=== PATIENT | female | born 1990 | race Hispanic/Latino ===

== ENCOUNTER → 2017-09-13 | Outpatient (REF) | payer OTHER, SELFPAY | LOC: M LAB REF 13:04 | DX: J02.9 Acute pharyngitis, unspecified (principal) | CPT/HCPCS: 87070 ==

== ENCOUNTER 2019-02-23 16:53 | Emergency (ER) | payer OTHER ==
[~2019-02-23] VITALS: Ht 165.1 cm; Wt 129.3 kg
[2019-02-23] MEDS ORDERED: PREVTAB2 (16:59)
[2019-02-23] MEDS ORDERED: ALL10TAB29 (16:59)
[2019-02-23] MEDS ORDERED: st johns wort (16:59)
[2019-02-23 17:36] LABS: BASO % 0.2 % (0.0-1.0); EOS # 0.4 10^3/uL (0.0-0.5); EOS % 2.7 % (0.0-3.0); HEMATOCRIT 39.5 % (36.0-47.0); HEMOGLOBIN 12.3 g/dl (12.0-15.5); LYMPH # 3.6 10^3/uL (1.5-5.0); LYMPH % 28.1 % (24.0-44.0); MEAN CORPUSCULAR HEMOGLOBIN 27.3 pg (27.0-33.0); MEAN CORPUSCULAR HGB CONC 31.1 g/dl (32.0-36.5); MEAN CORPUSCULAR VOLUME 87.6 fl (80.0-96.0); MONO # 0.7 10^3/uL (0.0-0.8); MONO % 5.3 % (0.0-5.0); NEUTROPHILS # 8.1 10^3/uL (1.5-8.5); NEUTROPHILS % 63.2 % (36.0-66.0); PLATELET COUNT, AUTOMATED 401 10^3/uL (150-450); RED BLOOD COUNT 4.51 10^6/uL (4.00-5.40); WHITE BLOOD COUNT 12.8 10^3/uL (4.0-10.0)
[2019-02-23 17:58] LABS: ALBUMIN 3.4 GM/DL (3.2-5.2); ALT/SGPT 26 U/L (12-78); BILIRUBIN,DIRECT < 0.1 MG/DL (0.0-0.2); BILIRUBIN,TOTAL 0.2 MG/DL (0.2-1.0); BLOOD UREA NITROGEN 8 MG/DL (7-18); CALCIUM LEVEL 8.8 MG/DL (8.5-10.1); CARBON DIOXIDE LEVEL 29 MEQ/L (21-32); CHLORIDE LEVEL 106 MEQ/L (98-107); CREATININE FOR GFR 0.64 MG/DL (0.55-1.30); GLOMERULAR FILTRATION RATE > 60.0 (>60); GLUCOSE, FASTING 117 MG/DL (70-100); LIPASE 81 U/L (73-393); POTASSIUM SERUM 4.2 MEQ/L (3.5-5.1); SODIUM LEVEL 142 MEQ/L (136-145); TOTAL PROTEIN 7.7 GM/DL (6.4-8.2)
[2019-02-23] MEDS ORDERED: KETOROLAC 30 MG/ML VIAL (J1885) IV ONE (22:00)
[2019-02-23] MEDS ORDERED: ONDANSETRON 4MG/2ML VIAL (J2405) IV ONE (22:00)
[2019-02-23] MEDS ORDERED: NS 1,000 ML IV ONE (22:00)
[2019-02-23] MEDS ORDERED: ISOVUE-370 76% 100ML VIAL (Q9967) As Ordered ONE (22:40)
--- NOTE | 2019-02-23 23:17 | REPVR ---
PROCEDURE INFORMATION: Exam: CT Abdomen and pelvis with contrast Exam date and time: 02/23/2019 10:36 PM Clinical history: 28 years old, female; Abdominal pain; Localized; Right lower quadrant (rlq); Additional info: Rlq pain TECHNIQUE: Imaging protocol: Computed tomography of the abdomen and pelvis with intravenous contrast. Radiation optimization: All CT scans at this facility use at least one of these dose optimization techniques: automated exposure control; mA and/or kV adjustment per patient size (includes targeted exams where dose is matched to clinical indication); or iterative reconstruction. Contrast material: ISO; Contrast volume: 100 ml; Contrast route: AC; COMPARISON: No relevant prior studies available. FINDINGS: Liver: There is a diffuse decrease in hepatic parenchymal density, consistent with fatty infiltration. Peripherally enhancing process in the posterior medial aspect of the right lobe of the liver measures 2.6 x 2.3 cm. Finding may represent an incompletely opacified hemangioma although not definitive on this single phase examination. Gallbladder and bile ducts: Normal. No calcified stones. No ductal dilation. Pancreas: Normal. No ductal dilation. Spleen: Normal. No splenomegaly. Adrenals: Normal. No mass. Kidneys and ureters: Normal. No hydronephrosis. Stomach and bowel: Unremarkable. No obstruction. No mucosal thickening. Appendix: No evidence of appendicitis. Intraperitoneal space: Unremarkable. No free air. No significant fluid collection. Vasculature: Unremarkable. No abdominal aortic aneurysm. Lymph nodes: Unremarkable. No enlarged lymph nodes. Bladder: Unremarkable as visualized. Reproductive: There is a large bilobed cystic process originating from the right ovary measuring 9.6 x 16.1 x 10.4 cm. No solid components or calcifications demonstrated. Finding may represent large functional cyst however cystic neoplasm not excluded. Bones/joints: Unremarkable. No acute fracture. Soft tissues: See Reproductive Finding. IMPRESSION: 1. There is a diffuse decrease in hepatic parenchymal density, consistent with fatty infiltration. 2. Peripherally enhancing process in the posterior medial aspect of the right lobe of the liver measures 2.6 x 2.3 cm. Finding may represent an incompletely opacified hemangioma although not definitive on this single phase examination. Ultrasound correlation may be of additional benefit. 3. There is a large bilobed cystic process originating from the right ovary measuring 9.6 x 16.1 x 10.4 cm. No solid components or calcifications demonstrated. Finding may represent large functional cyst however cystic neoplasm not excluded. Pelvic MRI to assess for any abnormal enhancement or occult soft tissue components may be helpful. Electronically signed by: Saman Jeff On 02/23/2019 23:17:07 PM
[2019-02-24 00:58] VITALS: BP 140/81
--- NOTE | 2019-02-24 01:35 | REPVR ---
PROCEDURE INFORMATION: Exam: US Pelvis Complete, Transabdominal and US Duplex Artery and Vein, Ovaries, Complete Exam date and time: 02/24/2019 12:32 AM Clinical history: 28 years old, female; Abnormal findings; Abnormal imaging test; Additional info: Large ovarian cyst right, RO torsion TECHNIQUE: Imaging protocol: Real-time transabdominal pelvic ultrasound with image documentation. Real-time duplex ultrasound scan of the arterial and venous flow of the ovaries with B-mode, color Doppler flow and spectral waveform analysis. Complete Pelvis, Complete Duplex. COMPARISON: No relevant prior studies available. FINDINGS: Uterus/cervix: Endometrial stripe is 5 mm. Uterus measures 9.3 x 3.3 x 6.2 cm. Right adnexa: There is a complex right adnexal septated cystic mass containing internal low level echoes. Mass measures approximately 20 x 10 x 14 cm. Normal arterial and venous waveforms. Left adnexa: Left ovary measures 3 x 2 x 4 cm. Normal arterial and venous waveforms. Free fluid: None. Bladder: Normal. IMPRESSION: Large cystic neoplasm arising from the right adnexa. No evidence of ovarian torsion bilaterally. Electronically signed by: Fantasma Nguyen On 02/24/2019 01:34:40 AM
== END 2019-02-24 00:59 | disposition home or self-care (01) ==
LOC: M ED 16:53
DX: E28.2 Polycystic ovarian syndrome (principal); K21.9 Gastro-esophageal reflux disease without esophagitis; Z79.899 Other long term (current) drug therapy; Z79.3 Long term (current) use of hormonal contraceptives
CPT/HCPCS: 74177; 76856; 80048; 80076; 81001; 83690; 84702; 85025; 93976; 96361; 96374; 96375; 99284; J1885; J2405; Q9967

== ENCOUNTER → 2019-02-25 | Outpatient (REF) | payer OTHER ==
[~2019-02-25] MED LIST: ALL10TAB29; PREVTAB2; st johns wort
[2019-02-27 11:06] LABS: CA 125 5.8 U/ML (<30.2); CA19-9 TUMOR MARKER,CARBOHYDRA 4.1 U/ML (<35.0)
== END ==
LOC: M SFHCWAGY 09:20
PROVIDERS: ATTEND Nurse Practitioner Family
DX: N83.201 Unspecified ovarian cyst, right side (principal)

== ENCOUNTER 2019-04-20 09:41 | Day surgery (SDC) | payer OTHER ==
[~2019-04-20] VITALS: Ht 165.1 cm; Wt 128.4 kg
[~2019-04-20 09:41] MED LIST changes: +CETI10CH PO; +KETOROLAC 60 MG/2 ML VIAL (J1885) As Ordered ONE; +LIDOCAINE 2% INJ 100 MG/5 ML SDV (FOR ANES.) As Ordered ONE; +METF750T36 PO; +ONDANSETRON 4MG/2ML VIAL (J2405) As Ordered ONE; -PREVTAB2; +PREVTAB2 PO; +PROPOFOL 200 MG/20 ML VIAL As Ordered ONE; +ROCURONIUM BROMIDE 50 MG/5 ML VIAL As Ordered ONE; +ST J300C2 PO; +SUGAMMADEX SODIUM 500 MG/5 ML VIAL (BRIDION) As Ordered ONE; +dexameTHASONE 4 MG/ML 1ML VIAL (J1100) As Ordered ONE
[2019-04-20] MEDS ORDERED: IBUP1TAB7 PO (10:10)
[2019-04-20] MEDS ORDERED: OXYC1TAB23 PO (10:11)
[2019-04-20] MEDS ORDERED: MIDAZOLAM INJ 2 MG/2 ML VIAL (J2250) As Ordered ONE (10:13)
[2019-04-20] MEDS ORDERED: fentaNYL 250 MCG/5 ML INJECTION (J3010) As Ordered ONE (10:13)
[2019-04-20 10:14] LABS: HEMATOCRIT 40.2 % (36.0-47.0); HEMOGLOBIN 12.4 g/dl (12.0-15.5); MEAN CORPUSCULAR HEMOGLOBIN 27.4 pg (27.0-33.0); MEAN CORPUSCULAR HGB CONC 30.8 g/dl (32.0-36.5); MEAN CORPUSCULAR VOLUME 88.9 fl (80.0-96.0); PLATELET COUNT, AUTOMATED 426 10^3/uL (150-450); RED BLOOD COUNT 4.52 10^6/uL (4.00-5.40); WHITE BLOOD COUNT 12.6 10^3/uL (4.0-10.0)
[2019-04-20] MEDS ORDERED: BUPIVACAINE HCL 0.25% 30 ML VIAL As Ordered ONE (10:16)
[2019-04-20] MEDS ORDERED: ROCURONIUM BROMIDE 50 MG/5 ML VIAL As Ordered ONE (11:21)
[2019-04-20] MEDS ORDERED: fentaNYL 100 MCG/2 ML INJECTION (J3010) IV PRN (12:30)
[2019-04-20] MEDS ORDERED: HYDROMORPHONE HCL 0.5 MG/ 0.5 ML SYRINGE (J1170 PER 1) IV PRN (12:30)
[2019-04-20] MEDS ORDERED: LR 1,000 ML IV SCH (12:30)
[2019-04-20] MEDS: ONDANSETRON 4MG/2ML VIAL (J2405) IV PRN ×2 (12:37→12:48)
[2019-04-20] MEDS: PERCOCET 5MG/325MG TAB PO PRN ×2 (12:37→13:13)
[2019-04-20] MEDS ORDERED: PERCOCET 5MG/325MG TAB PO PRN (13:31)
[2019-04-20 15:17] VITALS: BP 141/80
[2019-04-20] MEDS ORDERED: KETOROLAC 30 MG/ML VIAL (J1885) IV SCH (18:00)
--- NOTE | 2019-04-21 12:31 | RO ---
DATE OF PROCEDURE: 04/20/2019 PREOPERATIVE DIAGNOSIS: Right ovarian cyst. POSTOPERATIVE DIAGNOSIS: Left ovarian cyst. PROCEDURES PERFORMED: Laparoscopic left ovarian cystectomy with partial left salpingectomy. SURGEON: Camryn Holt MD APPRENTICE JOCKEY: Rodney Ortiz MD ANESTHESIA: General endotracheal anesthesia. ESTIMATED BLOOD LOSS: 5 mL. INTRAVENOUS FLUIDS: 1 liter of lactated Ringer solution. URINE OUTPUT: 15 mL. PREOPERATIVE ANTIBIOTICS: none OPERATIVE FINDINGS: Patient with approximately a 22 cm left ovarian cyst. There was approximately 1100 mL of clear serous fluids removed intraoperatively. DESCRIPTION OF OPERATION: After informed consent was obtained and written consent was reviewed, the patient was brought to the operating room where general endotracheal anesthesia was obtained. She was then placed in lithotomy position, was prepped and draped in normal sterile fashion. Time-out in operating room was then performed identifying the patient, procedure to be performed, as well as drug allergies. A Enrique catheter was placed and set to gravity. A speculum was then placed revealing cervix. The anterior lip of cervix was grasped with a single-tooth tenaculum. The Hulka tag was advanced through the cervical os for means to manipulate the uterus. Gloves were changed. Attention was turned to the patient's abdomen where 0.25% Marcaine was infused in umbilical region. This area was incised. An 11 mm trocar sleeve was advanced through this incision. Laparoscope was then replaced revealing intra-abdominal placement and pneumoperitoneum was then obtained with CO2 gas. Two additional port sites were placed onto each side of the umbilicus. These areas was infused with 0.25% Marcaine. Each one of these incisions was infused with 0.25% Marcaine. An incision was made in each one of these areas and a 5 mm trocar sleeve was advanced to each one of these incision. The abdomen was then surveyed showing an approximately 22 cm left ovarian cyst. Right adnexa appeared to be normal. Normal appearing uterus. Using the Harmonic Dillon scalpel device and a laparoscopic suction staff command and control officer, an incision was made in the ovarian cyst which drained approximately 110 mL of serous fluid. Cystectomy was performed using Harmonic scalpel Dillon device incorporating the fimbria and part of left fallopian tube. The specimen was then placed in Endo Catch bag and was then removed through the abdomen. Surgical sites were irrigated and suctioned. Sites were inspected and noted to be hemostatic. The pneumoperitoneum was then released. The fascia of the umbilical port site was closed with #0 Vicryl. All three skin incisions were closed with #4-0 Monocryl and was dressed with Dermabond. The patient was then taken out of the lithotomy position, was awakened from general anesthesia and taken to recovery in stable condition. Dr. Ortiz my title assistant played an essential role in the operation with port placement, tissue retraction and identification as well as incision closure. DEMETRIUS
== END 2019-04-20 14:50 | disposition home or self-care (01) ==
LOC: M SDC 09:41
PROVIDERS: ATTEND Obstetrics & Gynecology
DX: D27.1 Benign neoplasm of left ovary (principal); E28.2 Polycystic ovarian syndrome; K21.9 Gastro-esophageal reflux disease without esophagitis; L30.9 Dermatitis, unspecified; F41.9 Anxiety disorder, unspecified; J30.81 Allergic rhinitis due to animal (cat) (dog) hair and dander; J30.1 Allergic rhinitis due to pollen; Z79.899 Other long term (current) drug therapy; Z79.84 Long term (current) use of oral hypoglycemic drugs
CPT/HCPCS: 36415; 58661; 81025; 85027; 86850; 86900; 86901; 88305; J1100; J1885; J2250; J2405; J3010

== ENCOUNTER → 2020-03-01 | Outpatient (CLI) | payer OTHER ==
[~2020-03-01] MED LIST changes: -ALL10TAB29; +CETI-24; +IBUP1TAB7 PO; -KETOROLAC 60 MG/2 ML VIAL (J1885) As Ordered ONE; -LIDOCAINE 2% INJ 100 MG/5 ML SDV (FOR ANES.) As Ordered ONE; -ONDANSETRON 4MG/2ML VIAL (J2405) As Ordered ONE; +OXYC1TAB23 PO; -PROPOFOL 200 MG/20 ML VIAL As Ordered ONE; -ROCURONIUM BROMIDE 50 MG/5 ML VIAL As Ordered ONE; -SUGAMMADEX SODIUM 500 MG/5 ML VIAL (BRIDION) As Ordered ONE; -dexameTHASONE 4 MG/ML 1ML VIAL (J1100) As Ordered ONE
[2020-03-01 16:24] LABS: HEMATOCRIT 39.8 % (36.0-47.0); HEMOGLOBIN 12.5 g/dl (12.0-15.5); MEAN CORPUSCULAR HEMOGLOBIN 28.2 pg (27.0-33.0); MEAN CORPUSCULAR HGB CONC 31.4 g/dl (32.0-36.5); MEAN CORPUSCULAR VOLUME 89.6 fl (80.0-96.0); PLATELET COUNT, AUTOMATED 429 10^3/uL (150-450); RED BLOOD COUNT 4.44 10^6/uL (4.00-5.40); WHITE BLOOD COUNT 11.4 10^3/uL (4.0-10.0)
[2020-03-01 17:01] LABS: ALBUMIN 3.4 GM/DL (3.2-5.2); ALT/SGPT 62 U/L (12-78); BILIRUBIN,TOTAL 0.2 MG/DL (0.2-1.0); BLOOD UREA NITROGEN 9 MG/DL (7-18); CALCIUM LEVEL 8.7 MG/DL (8.5-10.1); CARBON DIOXIDE LEVEL 27 MEQ/L (21-32); CHLORIDE LEVEL 106 MEQ/L (98-107); CHOLESTEROL LEVEL 193 MG/DL (<200); CHOLESTEROL RISK RATIO 4.707 (<5); GLOMERULAR FILTRATION RATE > 60.0 (>60); GLUCOSE, FASTING 82 MG/DL (70-100); HDL CHOLESTEROL 41 MG/DL (>40); LDL CHOLESTEROL 126 MG/DL (<100); NON-HDL-C 152 MG/DL; POTASSIUM SERUM 4.4 MEQ/L (3.5-5.1); SODIUM LEVEL 140 MEQ/L (136-145); TOTAL PROTEIN 7.4 GM/DL (6.4-8.2); TRIGLYCERIDES LEVEL 129 MG/DL (<150)
== END ==
LOC: M WUC 13:47
PROVIDERS: ATTEND Family Medicine
DX: Z00.00 Encounter for general adult medical examination without abnormal findings (principal)

== ENCOUNTER → 2020-12-07 | Outpatient (REF) | payer OTHER | LOC: M SFHCWAGY 10:15 | PROVIDERS: ATTEND Nurse Practitioner Women's Health | DX: Z12.4 Encounter for screening for malignant neoplasm of cervix (principal) ==

== ENCOUNTER → 2021-04-11 | Outpatient (CLI) | payer OTHER ==
[2021-04-11 15:57] LABS: HEMATOCRIT 40.1 % (36.0-47.0); HEMOGLOBIN 12.3 g/dl (12.0-15.5); MEAN CORPUSCULAR HEMOGLOBIN 27.2 pg (27.0-33.0); MEAN CORPUSCULAR HGB CONC 30.7 g/dl (32.0-36.5); MEAN CORPUSCULAR VOLUME 88.7 fl (80.0-96.0); PLATELET COUNT, AUTOMATED 460 10^3/uL (150-450); RED BLOOD COUNT 4.52 10^6/uL (4.00-5.40); WHITE BLOOD COUNT 17.5 10^3/uL (4.0-10.0)
[2021-04-11 16:29] LABS: ALBUMIN 3.2 GM/DL (3.2-5.2); ALT/SGPT 48 U/L (12-78); BILIRUBIN,TOTAL 0.2 MG/DL (0.2-1.0); BLOOD UREA NITROGEN 9 MG/DL (7-18); CALCIUM LEVEL 9.1 MG/DL (8.5-10.1); CARBON DIOXIDE LEVEL 29 MEQ/L (21-32); CHLORIDE LEVEL 105 MEQ/L (98-107); CHOLESTEROL LEVEL 200 MG/DL (<200); CHOLESTEROL RISK RATIO 4.761 (<5); CREATININE FOR GFR 0.52 MG/DL (0.55-1.30); GLOMERULAR FILTRATION RATE > 60.0 (>60); GLUCOSE, FASTING 105 MG/DL (70-100); HDL CHOLESTEROL 42 MG/DL (>40); LDL CHOLESTEROL 123 MG/DL (<100); NON-HDL-C 158 MG/DL; POTASSIUM SERUM 4.4 MEQ/L (3.5-5.1); SODIUM LEVEL 141 MEQ/L (136-145); TOTAL PROTEIN 7.7 GM/DL (6.4-8.2); TRIGLYCERIDES LEVEL 177 MG/DL (<150)
== END ==
LOC: M WUC 14:47
PROVIDERS: ATTEND Family Medicine
DX: Z00.00 Encounter for general adult medical examination without abnormal findings (principal)

== ENCOUNTER → 2021-05-01 | Outpatient (CLI) | payer OTHER ==
[2021-05-01 16:39] LABS: BASO % 0.2 % (0.0-1.0); EOS # 0.4 10^3/uL (0.0-0.5); EOS % 2.3 % (0.0-3.0); HEMATOCRIT 40.6 % (36.0-47.0); HEMOGLOBIN 12.2 g/dl (12.0-15.5); LYMPH % 29.2 % (24.0-44.0); MEAN CORPUSCULAR HEMOGLOBIN 27.1 pg (27.0-33.0); MEAN CORPUSCULAR VOLUME 90.2 fl (80.0-96.0); MONO # 1.2 10^3/uL (0.0-0.8); MONO % 6.7 % (2.0-8.0); NEUTROPHILS # 10.5 10^3/uL (1.5-8.5); NEUTROPHILS % 61.1 % (36.0-66.0); PLATELET COUNT, AUTOMATED 489 10^3/uL (150-450); WHITE BLOOD COUNT 17.2 10^3/uL (4.0-10.0)
== END ==
LOC: M WUC 12:59
PROVIDERS: ATTEND Family Medicine
DX: D72.829 Elevated white blood cell count, unspecified (principal)

== ENCOUNTER → 2021-08-21 | Outpatient (CLI) | payer OTHER ==
[~2021-08-21] MED LIST changes: +E-Z-GAS II EFFERVESCENT PACKET (SODIUM BICARB./CITRIC ACID/SIMETHICONE) As Ordered ONE; +E-Z-HD 98% w/w 340GM SUSP BTL As Ordered ONE; +E-Z-PAQUE 96% w/w SUSP 176GM BTL As Ordered ONE
== END ==
LOC: M RAD 08:38
PROVIDERS: ATTEND Family Medicine
DX: R10.10 Upper abdominal pain, unspecified (principal)

== ENCOUNTER → 2021-08-24 | Outpatient (CLI) | payer OTHER ==
[~2021-08-24] MED LIST changes: -E-Z-GAS II EFFERVESCENT PACKET (SODIUM BICARB./CITRIC ACID/SIMETHICONE) As Ordered ONE; -E-Z-HD 98% w/w 340GM SUSP BTL As Ordered ONE; -E-Z-PAQUE 96% w/w SUSP 176GM BTL As Ordered ONE
[2021-08-24 12:07] LABS: BASO % 0.3 % (0.0-1.0); EOS # 0.4 10^3/uL (0.0-0.5); EOS % 3.7 % (0.0-3.0); HEMATOCRIT 39.3 % (36.0-47.0); HEMOGLOBIN 12.1 g/dl (12.0-15.5); LYMPH # 3.7 10^3/uL (1.5-5.0); LYMPH % 30.8 % (24.0-44.0); MEAN CORPUSCULAR HEMOGLOBIN 27.1 pg (27.0-33.0); MEAN CORPUSCULAR HGB CONC 30.8 g/dl (32.0-36.5); MEAN CORPUSCULAR VOLUME 87.9 fl (80.0-96.0); MONO # 0.8 10^3/uL (0.0-0.8); MONO % 6.8 % (2.0-8.0); NEUTROPHILS % 58.1 % (36.0-66.0); PLATELET COUNT, AUTOMATED 423 10^3/uL (150-450); RED BLOOD COUNT 4.47 10^6/uL (4.00-5.40)
== END ==
LOC: M LAB 11:24
PROVIDERS: ATTEND Family Medicine
DX: D72.829 Elevated white blood cell count, unspecified (principal)

== ENCOUNTER → 2022-08-28 | Outpatient (REF) | payer OTHER ==
[~2022-08-28] MED LIST changes: +OMEP40CA5
== END ==
LOC: M PLALAB 14:37
PROVIDERS: ATTEND Nurse Practitioner Family
DX: Z12.4 Encounter for screening for malignant neoplasm of cervix (principal)

== ENCOUNTER → 2022-08-29 | Outpatient (REF) | payer OTHER | LOC: M SFHCWAGY 13:36 | PROVIDERS: ATTEND Nurse Practitioner Family | DX: Z12.4 Encounter for screening for malignant neoplasm of cervix (principal) ==

== ENCOUNTER → 2022-09-28 | Outpatient (REF) | payer OTHER ==
[~2022-09-28] MED LIST changes: +FLUO10CA18; +PHEN-239
[2022-09-28 17:44] LABS: HEMOGLOBIN A1c 5.5 % (4.0-6.0)
== END ==
LOC: M LABWUC 16:09
PROVIDERS: ATTEND Family Medicine
DX: Z79.899 Other long term (current) drug therapy (principal)

== ENCOUNTER → 2022-10-04 | Outpatient (REF) | payer OTHER | LOC: M SFHCWAGY 15:20 | PROVIDERS: ATTEND Nurse Practitioner Family | DX: N90.4 Leukoplakia of vulva (principal) ==

== ENCOUNTER → 2022-12-09 | Outpatient (CLI) | payer OTHER | LOC: M RAD 14:47 | PROVIDERS: ATTEND Student in an Organized Health Care Education/Training Program | DX: M79.674 Pain in right toe(s) (principal) ==

== ENCOUNTER → 2024-09-28 | Outpatient (REF) | payer OTHER ==
[~2024-09-28] MED LIST changes: +FLUO-290; -FLUO10CA18; -PHEN-239; +PHEN37.511
[2024-09-28 12:57] LABS: HEMATOCRIT 40.8 % (36.0-47.0); HEMOGLOBIN 12.4 g/dl (12.0-15.5); MEAN CORPUSCULAR HEMOGLOBIN 26.4 pg (27.0-33.0); MEAN CORPUSCULAR HGB CONC 30.4 g/dl (32.0-36.5); MEAN CORPUSCULAR VOLUME 86.8 fl (80.0-96.0); PLATELET COUNT, AUTOMATED 482 10^3/uL (150-450); WHITE BLOOD COUNT 15.7 10^3/uL (4.0-10.0)
[2024-09-28 13:10] LABS: HEMOGLOBIN A1c 6.2 % (4.0-6.0)
[2024-09-28 13:21] LABS: THYROID STIMULATING HORMONE 1.386 uIU/ML (0.55-4.78)
[2024-09-28 13:22] LABS: ALBUMIN 3.2 G/DL (3.2-5.2); ALKALINE PHOSPHATASE 80 U/L (35-104); ALT/SGPT 28 U/L (7.0-40); AST/SGOT 26 U/L (<34); BILIRUBIN,TOTAL 0.2 MG/DL (0.3-1.2); BLOOD UREA NITROGEN 7 MG/DL (9-23); CALCIUM LEVEL 8.8 MG/DL (8.5-10.1); CARBON DIOXIDE LEVEL 27 MMOL/L (20-31); CHLORIDE LEVEL 105 MMOL/L (98-107); CHOLESTEROL LEVEL 193 MG/DL (<200); CHOLESTEROL RISK RATIO 5.07 (<5); CREATININE FOR GFR 0.46 MG/DL (0.55-1.30); GLOMERULAR FILTRATION RATE > 90.0 (>60); GLUCOSE, FASTING 124 MG/DL (60-100); LDL CHOLESTEROL 120.8 MG/DL (<100); SODIUM LEVEL 142 MMOL/L (136-145); TOTAL 25(OH) VITAMIN D 22.2 NG/ML (20.0-100.0); TOTAL PROTEIN 7.4 G/DL (5.7-8.2); TRIGLYCERIDES LEVEL 171 MG/DL (<150)
== END ==
LOC: M LAB REF 12:12
PROVIDERS: ATTEND Student in an Organized Health Care Education/Training Program
DX: Z00.01 Encounter for general adult medical examination with abnormal findings (principal)